=== PATIENT | male | born 1995 | race Caucasian/White ===

== ENCOUNTER 2017-01-28 15:42 | Emergency (ER) | payer OTHER ==
[~2017-01-28] VITALS: Ht 172.7 cm; Wt 59.0 kg
[2017-01-28] MEDS ORDERED: Dexamethasone 4mg/ml vial IM ONE (16:15)
--- NOTE | 2017-01-28 16:35 | Emergency Room Report ---
History of Present Illness General Chief Complaint: Upper Respiratory Illness Source: Patient Present Illness HPI 21-year-old male presents emergency department complaining of painful productive cough x2 weeks with 8/10 in severity sore throat x4 days. Patient reports fevers and chills and states he has been taking Mucinex and over-the- counter cold medications which provided minimal relief. Patient reports raspy voice and throat erythema. Pt reports mother and friend have similar symptoms, and his friend was hospitalized for strep throat. Patient denies neck pain or stiffness. Patient states pain is exacerbated with swallowing, and with coughing. States 2/10 in severity lower posterior rib pain with coughing. He denies recent travel. Denies CP, painful respirations, Palpitations, LOC, AMS , dizziness, Changes in Vision, Sensation, paresthesias, or a sudden severe headache. Allergies: Coded Allergies: No Known Allergies (Unverified , 04/07/12) Patient History Past Medical History: see triage record Past Surgical History: none Pertinent Family History: none Immunizations: UTD Reviewed Nursing Documentation: PMH: Agreed, PSxH: Agreed Nursing Documentation-PMH Past Medical History: No History, Except For Review of Systems All Other Systems: negative except mentioned in HPI Physical Exam Vital Signs Date Time Temp Pulse Resp B/P Pulse Ox O2 Delivery O2 Flow Rate FiO2 01/28/17 15:52 98.8 128 18 138/87 95 Room Air Sp02 EP Interpretation: reviewed, abnormal - pt. is tachycardic. General Appearance: no apparent distress, alert, GCS 15, non-toxic Head: normocephalic, atraumatic Eyes: bilateral eye PERRL, bilateral eye normal inspection ENT: hearing grossly normal, normal pharynx, no angioedema, normal voice Neck: full range of motion, supple/symm/no masses Respiratory: lungs clear, normal breath sounds, no respiratory distress, no accessory muscle use, no wheezing, speaking full sentences, other - posterior chest TTP to the bilateral lower ribcage. Cardiovascular #1: no edema, normal capillary refill, tachycardia Musculoskeletal: back normal, gait/station normal, normal range of motion, non- tender Neurologic: alert, oriented x3, responsive, motor strength/tone normal, sensory intact, speech normal Psychiatric: judgement/insight normal, memory normal, mood/affect normal Skin: normal color, no rash, warm/dry, well hydrated Lymphatic: other - bilateral submandibular LAD Medical Decision Making PA Attestation Dr. Farmer is my supervising Physician whom patient management has been discussed with. Diagnostic Impression: Primary Impression: Pharyngitis, acute Qualified Codes: J02.0 - Streptococcal pharyngitis Additional Impressions: Atypical pneumonia Pleurisy ER Course 21-year-old male presents emergency department complaining of productive cough x2 weeks with 8/10 in severity sore throat x4 days. Patient reports fevers and chills and states he has been taking Mucinex and cpiy-uhl-oahnrex cold medications which provided minimal relief. Patient reports raspy voice and tonsillar swelling. Patient denies neck pain or stiffness. Patient states pain is exacerbated with swallowing, and with coughing. He denies ill contacts or recent travel. Ddx considered but are not limited to URI, pneumonia, PE, strep pharyngitis, INFLATED BALL MOLDER , meningitis. Vital signs: Pt. is afebrile, the remaining VS are WNL-- Pt has been taking mucinex cold INFLATED BALL MOLDER. H&PE are most consistent with pharyngitis, will r/o atypical pneumonia with imaging, no evidence to suggest INFLATED BALL MOLDER, retropharyngeal abscess of low suspicion but possible, will treat prophylactically. ORDERS: -CXR: possible left lower infiltrate vs atelectasis per preliminary ED read By Dr. Farmer ED INTERVENTIONS: -8mg Decadron IM --PT. EDUCATION: Discussed antibiotic resistance with inappropriate prescribing of antibiotics for viral illnesses. Discussed signs and symptoms to indicate viral illness versus bacterial illness. DISCHARGE: At this time pt. is stable for d/c to home. Will provide printed patient care instructions, and any necessary prescriptions. Care plan and follow up instructions have been discussed with the patient prior to discharge. Last Vital Signs Date Time Temp Pulse Resp B/P Pulse Ox O2 Delivery O2 Flow Rate FiO2 01/28/17 15:59 128 18 Room Air 01/28/17 15:52 98.8 138/87 95 Disposition: HOME, SELF-CARE Condition: Stable Scripts Guaifenesin (Guaifenesin) 1,200 Mg Tab.er.12h 1200 MG PO BID for 10 Days, #20 TAB Prov: Brittney Quiroz P.AJamin 01/28/17 Ibuprofen* (MOTRIN*) 600 Mg Tablet 600 MG ORAL THREE TIMES A DAY, #30 TAB 0 Refills Prov: Brittney Quiroz 01/28/17 Azithromycin* (ZITHROMAX*) 250 Mg Tablet 250 MG ORAL DAILY for 5 Days, #6 TAB Prov: Brittney Quiroz 01/28/17 Referrals: NOT CHOSEN IPA/MD,REFERRING (PCP) Patient Instructions: Pharyngitis, Pleurisy, [id number] Additional Instructions: Take medications as directed. Follow up with PCP in 3-5 days Return sooner to ED if new symptoms occur, or current symptoms become worse. - Please note that this Emergency Department Report was dictated using [employer] technology software, occasionally this can lead to erroneous entry secondary to interpretation by the dictation equipment. Brittney Quiroz January 28, 2017 16:35
[2017-01-28] MEDS ORDERED: ZITHROMAX250 MG ORAL (16:54)
[2017-01-28] MEDS ORDERED: IBUPROFEN600 MG ORAL (16:54)
[2017-01-28] MEDS ORDERED: GUAIFENESIN1200 MG PO (16:54)
[2017-01-28 17:06] VITALS: BP 131/71
--- NOTE | 2017-01-29 16:36 | Diagnostic Imaging Report ---
Indication: Chest Pain Comparison: None A single view chest radiograph was obtained. Findings: Left basal infiltrate is present consistent with pneumonia. Heart is normal in size. Bones are unremarkable. No effusions are seen. Impression: Left basilar pneumonia
== END 2017-01-28 17:09 | disposition home or self-care (01) ==
LOC: EMR 16:23
DX: J02.9 Acute pharyngitis, unspecified (principal); J18.9 Pneumonia, unspecified organism; R09.1 Pleurisy
CPT/HCPCS: 71010; 96372; 99284; J1100